=== PATIENT | female | born 1945 | race Caucasian/White ===

== ENCOUNTER → 2016-03-19 | Outpatient (CLI) | payer MEDICARE, OTHER ==
[~2016-03-19] MED LIST: ASCORBIC ACID500 M3 PO; ATORVASTATIN CA10 MG PO; B-COMPLEX-VITA1 EACH PO; BENICAR HCT 201 EACH PO; LO-DOSE ASPIRIN81 M2 PO; MOTRIN IB200 MG PO; MOVE FREE JOIN1 EACH PO; OMEPRAZOLE20 MG PO; VITAMIN E400 UNIT PO
== END | disposition home or self-care (01) ==
LOC: CDC 11:10
DX: I47.1 Supraventricular tachycardia (principal); M71.38 Other bursal cyst, other site
CPT/HCPCS: 93000